=== PATIENT | male | born 1950 | race African-American/Black ===

== ENCOUNTER → 2017-02-20 | Outpatient (CLI) | payer MEDICARE, OTHER ==
[~2017-02-20] MED LIST: ALBUTEROL SULF 2.5 MG/0.5ML(0.5%) NEB SOLN ONE; HYDR25TA4 PO; IPRA0.064; LIS20T PO; METF-370 PO; OMEP20CA74 OR
== END | disposition home or self-care (01) ==
LOC: RT 08:47
PROVIDERS: ATTEND Internal Medicine
DX: J44.9 Chronic obstructive pulmonary disease, unspecified (principal)
CPT/HCPCS: 94060; 94640

== ENCOUNTER → 2019-11-21 | Outpatient (CLI) | payer OTHER, MEDICAID ==
[~2019-11-21] MED LIST changes: -ALBUTEROL SULF 2.5 MG/0.5ML(0.5%) NEB SOLN ONE
== END | disposition home or self-care (01) ==
LOC: RT 11:15
DX: J44.9 Chronic obstructive pulmonary disease, unspecified (principal)
CPT/HCPCS: 36600; 82805

== ENCOUNTER 2021-03-27 12:04 | Inpatient (IN) | payer OTHER, MEDICAID ==
[~2021-03-27] VITALS: Ht 175.3 cm; Wt 118.4 kg
[~2021-03-27 12:04] MED LIST changes: +ALBU1AER4 IN; +AML5T PO; +EMPA1TAB3 PO; +FURO20TA3 PO; +GABA600T PO; +INSU100I4 SC; +LEVEMIR SC; +ROFL1TAB2 PO; +TAM04C PO; +UMEC1AER IN
[2021-03-27 12:35] LABS: Basophils # (auto) 0.1 10 ^3/uL (0-0.2); Basophils % (auto) 0.9 % (0.0-2.0); Eosinophils # (auto) 0.2 10 ^3/uL (0-0.8); Eosinophils % (auto) 1.5 % (0.0-7.0); Hematocrit 41.5 % (41.0-53.0); Hemoglobin 13.5 g/dL (13.5-17.5); Lymphocytes # (auto) 1.8 10 ^3/uL (0.4-5.4); Lymphocytes % (auto) 16.9 % (10.0-50.0); Mean Corpuscular Hgb Conc. 32.6 g/dL (32.0-36.0); Mean Corpuscular Volume 85.9 fL (80.0-100.0); Monocytes # (auto) 0.6 10 ^3/uL (0-1.3); Monocytes % (auto) 5.8 % (0.0-12.0); Neutrophils # (auto) 7.9 10 ^3/uL (1.6-8.6); Neutrophils % (auto) 74.9 % (37.0-80.0); Red Blood Cells 4.83 10^6/uL (4.5-5.90); Red Cell Distribution Width 15.5 % (11.8-14.3); White Blood Cell 10.5 10^3/uL (4.4-10.8)
[2021-03-27] MEDS ORDERED: ASPirin-EC 81 mg tab PO ONE (12:45)
[2021-03-27 12:57] LABS: Albumin 3.3 g/dL (3.4-5.0); Anion Gap 7 (5-15); Blood Urea Nitrogen 19 mg/dL (7-18); Calcium 9.5 mg/dL (8.5-10.1); Carbon Dioxide 25 mmol/L (21-32); Chloride 109 mmol/L (98-107); Glucose 183 mg/dL (74-106); Sodium 141 mmol/L (136-145)
[2021-03-27 13:03] LABS: Alanine Aminotransferase 35 U/L (16-61); Alkaline Phosphatase 208 U/L (45-117); Aspartate Aminotransferase 24 U/L (15-37); BUN/Creatinine Ratio 9.7; Bilirubin, Total 0.2 mg/dL (0.2-1.0); GFR African American 44 mL/min; GFR Non-African American 36 mL/min; Total Protein 8.4 g/dL (6.4-8.2)
[2021-03-27] MEDS ORDERED: cefTRIAXone 1GM/50ML D5W 50 ML IV ONE (15:00)
[2021-03-27] MEDS ORDERED: MORPHINE SULF INJ 2 MG/ML SYRINGE 1ML IV ONE (15:15)
[2021-03-27] MEDS ORDERED: ONDANSETRON HCL 4 MG/2 ML VIAL IV ONE (15:15)
[2021-03-27] MEDS ORDERED: MORPHINE SULF INJ 2 MG/ML SYRINGE 1ML IV PRN (16:15)
[2021-03-27] MEDS ORDERED: NITROGLYCERIN 0.4 MG SL TAB SL PRN (16:15)
[2021-03-27 18:38] VITALS: BP 139/79
[2021-03-27] MEDS ORDERED: DEXTROSE (50%) 50ML SYRG IV PRN ×2 (18:45)
[2021-03-27 22:00] VITALS: BP 113/55
[2021-03-27] MEDS ORDERED: ACCU-CHEK COMFORT CURVE STRIP VI SCH (22:00)
[2021-03-27] MEDS ORDERED: InsuLIN REG 1unit/0.01ml Soln (100units/ml) SC SCH (22:00)
[2021-03-27] MEDS ORDERED: GABAPENTIN 300 MG CAP PO ONE (23:15)
[2021-03-27] MEDS: ACCU-CHEK COMFORT CURVE STRIP VI SCH (23:17)
[2021-03-27] MEDS: methylPREDNISolone SOD SUCC 40 MG/ML VL IV SCH (23:17)
[2021-03-27] MEDS: OXYCODONE W/ ACETAMINOPHEN 5/325MG TABLET PO PRN (23:22)
[2021-03-27] MEDS: InsuLIN REG 1unit/0.01ml Soln (100units/ml) SC SCH (23:27)
[2021-03-28 05:00] VITALS: BP 118/49
[2021-03-28] MEDS: GABAPENTIN 300 MG CAP PO SCH ×2 (06:05→14:49)
[2021-03-28] MEDS: OXYCODONE W/ ACETAMINOPHEN 5/325MG TABLET PO PRN (06:47)
[2021-03-28] MEDS: ACCU-CHEK COMFORT CURVE STRIP VI SCH ×2 (06:47→11:27)
[2021-03-28] MEDS: InsuLIN REG 1unit/0.01ml Soln (100units/ml) SC SCH ×2 (06:50→12:03)
[2021-03-28 09:29] VITALS: BP 138/73
[2021-03-28] MEDS ORDERED: ENOXAPARIN SOD 40 MG/0.4 ML SYRINGE SC SCH (10:00)
[2021-03-28] MEDS ORDERED: ASPirin-EC 81 mg tab PO SCH (10:00)
[2021-03-28] MEDS ORDERED: AZITHROMYCIN 500MG/ 250ML 250 ML IV SCH (10:00)
[2021-03-28] MEDS: methylPREDNISolone SOD SUCC 40 MG/ML VL IV SCH (10:19)
[2021-03-28] MEDS ORDERED: GUAI600T23 PO (11:34)
[2021-03-28] MEDS ORDERED: PRED20TA2 PO (11:34)
[2021-03-28] MEDS ORDERED: AZIT500T66 PO (11:35)
[2021-03-28] MEDS ORDERED: IPRA0.00 IN (11:35)
[2021-03-28 12:47] VITALS: BP 136/64
[2021-03-28 14:50] VITALS: BP 138/73
== END 2021-03-28 15:45 | disposition hospice, home (50) | DRG 191 ==
LOC: EDBD 12:04 → ER 12:04 → TELE 16:03 → TELE-CENTR 18:22
PROVIDERS: ADMIT Internal Medicine; ATTEND Internal Medicine
DX: J44.1 Chronic obstructive pulmonary disease with (acute) exacerbation (principal); I25.110 Atherosclerotic heart disease of native coronary artery with unstable angina pectoris; Z20.822 Contact with and (suspected) exposure to COVID-19; R07.89 Other chest pain; Z51.5 Encounter for palliative care; E11.40 Type 2 diabetes mellitus with diabetic neuropathy, unspecified; I11.0 Hypertensive heart disease with heart failure; I50.9 Heart failure, unspecified; K74.60 Unspecified cirrhosis of liver; N40.0 Benign prostatic hyperplasia without lower urinary tract symptoms; Z82.49 Family history of ischemic heart disease and other diseases of the circulatory system; Z83.3 Family history of diabetes mellitus; Z86.16 Personal history of COVID-19; Z87.891 Personal history of nicotine dependence; Z99.81 Dependence on supplemental oxygen
CPT/HCPCS: 36415; 71045; 74176; 80053; 82962; 83605; 83880; 84484; 85025; 87040; 87426; 93306; 96365; 96375; G0378; J0696; J1815; J2405

== ENCOUNTER 2022-11-15 21:38 | Inpatient (IN) | payer OTHER, MEDICAID ==
[~2022-11-15] VITALS: Ht 172.7 cm; Wt 120.8 kg
[~2022-11-15 21:38] MED LIST changes: +AZIT500T66 PO; +GUAI600T23 PO; -HYDR25TA4 PO; +IPRA0.00 IN; +PRED20TA2 PO
[2022-11-15 22:33] LABS: Eosinophils # (auto) 0.3 10 ^3/uL (0-0.8); Eosinophils % (auto) 3.2 % (0.0-7.0); Lymphocytes # (auto) 1.3 10 ^3/uL (0.4-5.4); Monocytes # (auto) 0.8 10 ^3/uL (0-1.3); Neutrophils # (auto) 6.3 10 ^3/uL (1.6-8.6); White Blood Cell 8.7 10^3/uL (4.4-10.8)
[2022-11-15 22:35] LABS: Basophils # (auto) 0.1 10 ^3/uL (0-0.2); Basophils % (auto) 0.6 % (0.0-2.0); Hematocrit 30.4 % (41.0-53.0); Hemoglobin 9.4 g/dL (13.5-17.5); Lymphocytes % (auto) 15.3 % (10.0-50.0); Mean Corpuscular Hemoglobin 24.1 pg (28.0-32.0); Mean Corpuscular Volume 77.8 fL (80.0-100.0); Monocytes % (auto) 8.6 % (0.0-12.0); Neutrophils % (auto) 72.3 % (37.0-80.0); Red Blood Cells 3.91 10^6/uL (4.5-5.90); Red Cell Distribution Width 17.8 % (11.8-14.3)
[2022-11-15 22:50] LABS: INR 0.97 (0.9-1.15); Partial Thromboplastin Time 29.6 sec (24.6-33.4)
[2022-11-15 22:54] LABS: Albumin 2.8 g/dL (3.4-5.0); Magnesium 2.6 mg/dL (1.6-2.6); Potassium 4.2 mmol/L (3.5-5.1)
[2022-11-15 22:56] LABS: Bilirubin, Total 0.2 mg/dL (0.2-1.0); Total Protein 8.5 g/dL (6.4-8.2)
[2022-11-15 23:03] LABS: BUN/Creatinine Ratio 20.5
[2022-11-15] MEDS ORDERED: SODIUM CHLORIDE 0.9% 1,000 ML IV ONE (23:15)
[2022-11-15] MEDS ORDERED: InsuLIN REG 1unit/0.01ml Soln (100units/ml) IV ONE (23:15)
[2022-11-16] MEDS ORDERED: InsuLIN REG 1unit/0.01ml Soln (100units/ml) IV ONE ×2 (00:35→03:15)
[2022-11-16] MEDS ORDERED: InsuLIN REG 1unit/0.01ml Soln (100units/ml) ONE (00:37)
[2022-11-16 01:38] LABS: Urine Bacteria FEW /hpf (None Seen); Urine Blood Negative /uL (Negative); Urine Specific Gravity 1.007 (1.001-1.035); Urine WBC 1 /hpf (0 - 3)
[2022-11-16 04:10] LABS: Alcohol, Urine < 3.0 mg/dL (0-10); Amphetamine Screen, Urine NEGATIVE (NEGATIVE); Barbiturate Scree,Urine NEGATIVE (NEGATIVE); Benzodiazephine Screen, Urine NEGATIVE (NEGATIVE); Cannabinoid Screen, Urine NEGATIVE (NEGATIVE); Cocaine Screen, Urine NEGATIVE (NEGATIVE); Opiate Scree,Urine NEGATIVE (NEGATIVE); Phencyclidine Screen, Urine NEGATIVE (NEGATIVE)
[2022-11-16 07:10] LABS: Basophils # (auto) 0.1 10 ^3/uL (0-0.2); Basophils % (auto) 1.1 % (0.0-2.0); Eosinophils # (auto) 0.3 10 ^3/uL (0-0.8); Eosinophils % (auto) 3.6 % (0.0-7.0); Hematocrit 28.1 % (41.0-53.0); Hemoglobin 8.9 g/dL (13.5-17.5); Lymphocytes # (auto) 1.1 10 ^3/uL (0.4-5.4); Lymphocytes % (auto) 14.5 % (10.0-50.0); Mean Corpuscular Hemoglobin 24.2 pg (28.0-32.0); Mean Corpuscular Hgb Conc. 31.7 g/dL (32.0-36.0); Mean Corpuscular Volume 76.5 fL (80.0-100.0); Monocytes # (auto) 0.7 10 ^3/uL (0-1.3); Monocytes % (auto) 8.4 % (0.0-12.0); Neutrophils # (auto) 5.7 10 ^3/uL (1.6-8.6); Neutrophils % (auto) 72.4 % (37.0-80.0); Nucleated Red Blood Cells % 0.1 %; Red Blood Cells 3.68 10^6/uL (4.5-5.90); White Blood Cell 7.9 10^3/uL (4.4-10.8)
[2022-11-16 07:25] LABS: Potassium 4.1 mmol/L (3.5-5.1)
[2022-11-16 07:31] LABS: Albumin 2.6 g/dL (3.4-5.0); BUN/Creatinine Ratio 21.9; Bilirubin, Total 0.2 mg/dL (0.2-1.0); Calcium 8.8 mg/dL (8.5-10.1); Total Protein 7.9 g/dL (6.4-8.2)
[2022-11-16] MEDS ORDERED: ACETAMINOPHEN 325 MG TAB PO PRN (13:00)
[2022-11-16] MEDS ORDERED: DEXTROSE (50%) 50ML SYRG IV PRN (13:00)
[2022-11-16] MEDS ORDERED: ONDANSETRON HCL 4 MG/2 ML VIAL IV PRN (13:00)
[2022-11-16] MEDS ORDERED: HYDROcodone-ACET 5/325MG TAB PO PRN (13:00)
[2022-11-16] MEDS ORDERED: MORPHINE SULFATE INJ 2 MG/ml SYRG IV PRN (13:00)
[2022-11-16] MEDS ORDERED: NITROGLYCERIN 0.4 MG SL TAB SL PRN (13:00)
[2022-11-16] MEDS ORDERED: MET25T PO (13:13)
[2022-11-16] MEDS: SODIUM CHLOR 0.9% PF (SALINE LOCK) 10ML VIAL/SYR IV SCH ×2 (13:41→22:32)
[2022-11-16] MEDS ORDERED: GABAPENTIN 300 MG CAP PO SCH (14:00)
[2022-11-16] MEDS: ACCU-CHEK COMFORT CURVE STRIP VI SCH ×2 (17:59→22:32)
[2022-11-16] MEDS: InsuLIN REG 1unit/0.01ml Soln (100units/ml) SC SCH ×2 (18:03→22:18)
[2022-11-16] MEDS ORDERED: INSULIN LANTUS (GLARGINE) 1 /0.01ml (100units/ml) SC ONE (18:15)
[2022-11-16] MEDS ORDERED: IPRATROPIUM BROM 0.5 MG/2.5ML INH SOL NEB PRN (18:45)
[2022-11-16] MEDS ORDERED: ALBUTEROL SULF 2.5 MG/0.5ML(0.5%) NEB SOLN NEB PRN (18:45)
[2022-11-16 19:16] VITALS: BP 188/82
[2022-11-16 19:30] VITALS: BP 186/90
[2022-11-16] MEDS ORDERED: hydrALAZINE HCL 20 MG/ML VL IV PRN (20:30)
[2022-11-16 22:00] VITALS: BP_SYST 131; BP_SYST 172; BP_DIAS 45; BP_DIAS 71
[2022-11-16] MEDS: GABAPENTIN 300 MG CAP PO SCH (22:21)
[2022-11-16] MEDS: OXYCODONE W/ ACETAMINOPHEN 5/325MG TABLET PO PRN (22:21)
[2022-11-16] MEDS: FUROSEMIDE 20 MG TAB PO SCH (22:21)
[2022-11-17] VITALS (7 sets, daily range): BP systolic 111–172; BP diastolic 51–71
[2022-11-17] MEDS: InsuLIN REG 1unit/0.01ml Soln (100units/ml) SC SCH ×4 (06:28→22:06)
[2022-11-17] MEDS: GABAPENTIN 300 MG CAP PO SCH ×3 (06:29→22:02)
[2022-11-17] MEDS: OXYCODONE W/ ACETAMINOPHEN 5/325MG TABLET PO PRN ×3 (06:29→22:07)
[2022-11-17] MEDS: FUROSEMIDE 20 MG TAB PO SCH (06:33)
[2022-11-17] MEDS: SODIUM CHLOR 0.9% PF (SALINE LOCK) 10ML VIAL/SYR IV SCH ×3 (06:33→22:07)
[2022-11-17] MEDS: ACCU-CHEK COMFORT CURVE STRIP VI SCH ×4 (06:34→22:06)
[2022-11-17 06:36] LABS: Basophils % (auto) 0.6 % (0.0-2.0); Eosinophils # (auto) 0.3 10 ^3/uL (0-0.8); Lymphocytes # (auto) 1.2 10 ^3/uL (0.4-5.4); Mean Corpuscular Hgb Conc. 32.3 g/dL (32.0-36.0); Monocytes # (auto) 0.6 10 ^3/uL (0-1.3); Neutrophils # (auto) 6.4 10 ^3/uL (1.6-8.6); Nucleated Red Blood Cells % 0.1 %; White Blood Cell 8.5 10^3/uL (4.4-10.8)
[2022-11-17 06:38] LABS: Basophils # (auto) 0.1 10 ^3/uL (0-0.2); Eosinophils % (auto) 3.2 % (0.0-7.0); Hematocrit 31.4 % (41.0-53.0); Hemoglobin 10.1 g/dL (13.5-17.5); Lymphocytes % (auto) 14.3 % (10.0-50.0); Mean Corpuscular Volume 77.5 fL (80.0-100.0); Monocytes % (auto) 6.9 % (0.0-12.0); Red Blood Cells 4.05 10^6/uL (4.5-5.90); Red Cell Distribution Width 18.1 % (11.8-14.3)
[2022-11-17 07:00] LABS: Albumin 2.9 g/dL (3.4-5.0); BUN/Creatinine Ratio 19.7; Calcium 9.3 mg/dL (8.5-10.1)
[2022-11-17 07:04] LABS: Bilirubin, Total 0.3 mg/dL (0.2-1.0); Total Protein 8.7 g/dL (6.4-8.2)
[2022-11-17] MEDS ORDERED: INSULIN LANTUS (GLARGINE) 1 /0.01ml (100units/ml) SC SCH (10:00)
[2022-11-17] MEDS: ROFLUMILAST PO SCH (10:00)
[2022-11-17] MEDS: DOCUSATE SOD 100 MG CAP PO PRN (10:10)
[2022-11-17] MEDS: TAMSULOSIN HYDROCHLORIDE 0.4 MG CAP PO SCH (10:10)
[2022-11-17] MEDS: PANTOPRAZOLE 40 MG/10 ML VIAL INJ IV SCH (10:10)
[2022-11-17] MEDS: METOPROLOL TARTRATE 25 MG TAB PO SCH (10:11)
[2022-11-17] MEDS ORDERED: LIDOCAINE 2%HCL (LOCAL ANESTH.) INJ 10ml MDV ONE (14:11)
[2022-11-17] MEDS ORDERED: SODIUM CHLORIDE 0.9% 1,000 ML IV ONE (16:45)
[2022-11-17] MEDS: INSULIN LANTUS (GLARGINE) 1 /0.01ml (100units/ml) SC SCH (22:05)
[2022-11-18] VITALS (7 sets, daily range): BP systolic 98–154; BP diastolic 57–81
[2022-11-18] MEDS: InsuLIN REG 1unit/0.01ml Soln (100units/ml) SC SCH ×4 (06:28→22:17)
[2022-11-18] MEDS: OXYCODONE W/ ACETAMINOPHEN 5/325MG TABLET PO PRN ×2 (06:29→22:12)
[2022-11-18] MEDS: EMPAGLIFLOZIN 10 MG TAB PO SCH (06:29)
[2022-11-18] MEDS: GABAPENTIN 300 MG CAP PO SCH ×3 (06:29→22:12)
[2022-11-18] MEDS: SODIUM CHLOR 0.9% PF (SALINE LOCK) 10ML VIAL/SYR IV SCH ×3 (06:30→22:18)
[2022-11-18] MEDS: ACCU-CHEK COMFORT CURVE STRIP VI SCH ×4 (06:30→22:13)
[2022-11-18 07:25] LABS: Basophils # (auto) 0 10 ^3/uL (0-0.2); Basophils % (auto) 0.5 % (0.0-2.0); Eosinophils # (auto) 0.3 10 ^3/uL (0-0.8); Eosinophils % (auto) 3.1 % (0.0-7.0); Lymphocytes # (auto) 1.5 10 ^3/uL (0.4-5.4); Monocytes # (auto) 0.6 10 ^3/uL (0-1.3); Nucleated Red Blood Cells % 0.1 %
[2022-11-18 07:28] LABS: Hematocrit 32.3 % (41.0-53.0); Hemoglobin 10.4 g/dL (13.5-17.5); Lymphocytes % (auto) 16.5 % (10.0-50.0); Mean Corpuscular Hemoglobin 24.4 pg (28.0-32.0); Mean Corpuscular Hgb Conc. 32.2 g/dL (32.0-36.0); Mean Corpuscular Volume 75.9 fL (80.0-100.0); Monocytes % (auto) 6.4 % (0.0-12.0); Neutrophils # (auto) 6.4 10 ^3/uL (1.6-8.6); Neutrophils % (auto) 73.5 % (37.0-80.0); Red Blood Cells 4.25 10^6/uL (4.5-5.90); Red Cell Distribution Width 18.3 % (11.8-14.3); White Blood Cell 8.8 10^3/uL (4.4-10.8)
[2022-11-18 08:21] LABS: BUN/Creatinine Ratio 17.9; Calcium 9.3 mg/dL (8.5-10.1); Potassium 4.1 mmol/L (3.5-5.1)
[2022-11-18] MEDS: PANTOPRAZOLE 40 MG/10 ML VIAL INJ IV SCH (09:04)
[2022-11-18] MEDS: METOPROLOL TARTRATE 25 MG TAB PO SCH (09:05)
[2022-11-18] MEDS: TAMSULOSIN HYDROCHLORIDE 0.4 MG CAP PO SCH (09:05)
[2022-11-18] MEDS: INSULIN LANTUS (GLARGINE) 1 /0.01ml (100units/ml) SC SCH ×2 (09:05→22:16)
[2022-11-18] MEDS ORDERED: amLODIPine BESYLATE 5 MG TAB PO SCH (10:00)
[2022-11-18] MEDS: ROFLUMILAST PO SCH (10:00)
[2022-11-18] MEDS: DOCUSATE SOD 100 MG CAP PO PRN (22:12)
[2022-11-19 05:00] VITALS: BP 128/65
[2022-11-19 05:34] LABS: BUN/Creatinine Ratio 16.8; Calcium 9.8 mg/dL (8.5-10.1); Potassium 3.9 mmol/L (3.5-5.1)
[2022-11-19] MEDS: SODIUM CHLOR 0.9% PF (SALINE LOCK) 10ML VIAL/SYR IV SCH ×3 (06:00→21:48)
[2022-11-19] MEDS: InsuLIN REG 1unit/0.01ml Soln (100units/ml) SC SCH ×4 (07:03→21:47)
[2022-11-19] MEDS: GABAPENTIN 300 MG CAP PO SCH ×3 (07:04→21:48)
[2022-11-19] MEDS: EMPAGLIFLOZIN 10 MG TAB PO SCH (07:04)
[2022-11-19] MEDS: ACCU-CHEK COMFORT CURVE STRIP VI SCH ×4 (07:05→21:48)
[2022-11-19 08:37] VITALS: BP 117/61
[2022-11-19] MEDS: PANTOPRAZOLE 40 MG TAB PO SCH (09:35)
[2022-11-19] MEDS: METOPROLOL TARTRATE 25 MG TAB PO SCH (09:35)
[2022-11-19] MEDS: TAMSULOSIN HYDROCHLORIDE 0.4 MG CAP PO SCH (09:36)
[2022-11-19] MEDS: amLODIPine BESYLATE 5 MG TAB PO SCH (09:37)
[2022-11-19] MEDS: ROFLUMILAST PO SCH (09:37)
[2022-11-19] MEDS: INSULIN LANTUS (GLARGINE) 1 /0.01ml (100units/ml) SC SCH ×2 (10:24→21:46)
[2022-11-19 13:00] VITALS: BP 129/54
[2022-11-19 17:00] VITALS: BP 149/69
[2022-11-19 22:00] VITALS: BP 101/60
[2022-11-19 23:48] VITALS: BP 101/60
[2022-11-20] MEDS: OXYCODONE W/ ACETAMINOPHEN 5/325MG TABLET PO PRN ×3 (01:03→21:28)
[2022-11-20 05:00] VITALS: BP 105/57
[2022-11-20 06:35] LABS: Basophils # (auto) 0 10 ^3/uL (0-0.2); Basophils % (auto) 0.4 % (0.0-2.0); Eosinophils # (auto) 0.3 10 ^3/uL (0-0.8); Eosinophils % (auto) 3.2 % (0.0-7.0); Hematocrit 31.5 % (41.0-53.0); Hemoglobin 10.1 g/dL (13.5-17.5); Lymphocytes # (auto) 2.2 10 ^3/uL (0.4-5.4); Lymphocytes % (auto) 20.2 % (10.0-50.0); Mean Corpuscular Hemoglobin 24.6 pg (28.0-32.0); Mean Corpuscular Hgb Conc. 32.1 g/dL (32.0-36.0); Mean Corpuscular Volume 76.8 fL (80.0-100.0); Monocytes # (auto) 0.8 10 ^3/uL (0-1.3); Neutrophils # (auto) 7.6 10 ^3/uL (1.6-8.6); Neutrophils % (auto) 69.2 % (37.0-80.0); Nucleated Red Blood Cells % 0.1 %; Red Blood Cells 4.11 10^6/uL (4.5-5.90); Red Cell Distribution Width 17.6 % (11.8-14.3)
[2022-11-20] MEDS: SODIUM CHLOR 0.9% PF (SALINE LOCK) 10ML VIAL/SYR IV SCH ×3 (06:42→21:29)
[2022-11-20] MEDS: ACCU-CHEK COMFORT CURVE STRIP VI SCH ×4 (06:42→21:31)
[2022-11-20] MEDS: InsuLIN REG 1unit/0.01ml Soln (100units/ml) SC SCH ×4 (06:42→21:30)
[2022-11-20] MEDS: EMPAGLIFLOZIN 10 MG TAB PO SCH (06:42)
[2022-11-20] MEDS: GABAPENTIN 300 MG CAP PO SCH ×3 (06:42→21:20)
[2022-11-20] MEDS: DOCUSATE SOD 100 MG CAP PO PRN (06:48)
[2022-11-20 06:56] LABS: Albumin 2.7 g/dL (3.4-5.0); BUN/Creatinine Ratio 15.2; Calcium 9.1 mg/dL (8.5-10.1)
[2022-11-20 06:58] LABS: Bilirubin, Total 0.3 mg/dL (0.2-1.0); Total Protein 8.4 g/dL (6.4-8.2)
[2022-11-20 08:43] VITALS: BP 135/75
[2022-11-20] MEDS: ROFLUMILAST PO SCH (10:00)
[2022-11-20] MEDS: METOPROLOL TARTRATE 25 MG TAB PO SCH (10:12)
[2022-11-20] MEDS: TAMSULOSIN HYDROCHLORIDE 0.4 MG CAP PO SCH (10:12)
[2022-11-20] MEDS: PANTOPRAZOLE 40 MG TAB PO SCH (10:13)
[2022-11-20] MEDS: amLODIPine BESYLATE 5 MG TAB PO SCH (10:13)
[2022-11-20] MEDS: INSULIN LANTUS (GLARGINE) 1 /0.01ml (100units/ml) SC SCH ×2 (10:18→21:31)
[2022-11-20 13:00] VITALS: BP 100/73
[2022-11-20] MEDS ORDERED: SODIUM CHLORIDE 0.9% 500 ML IV ONE (16:15)
[2022-11-20 17:00] VITALS: BP 104/61
[2022-11-20 22:00] VITALS: BP 137/68
[2022-11-21] MEDS ORDERED: CYCL-839 PO (01:14)
[2022-11-21] MEDS ORDERED: NORT25CA PO (01:14)
[2022-11-21] MEDS ORDERED: LORA-35 PO (01:14)
[2022-11-21] MEDS ORDERED: GLIP10TA9 PO (01:14)
[2022-11-21] MEDS ORDERED: SEMA7TAB PO (01:14)
[2022-11-21] MEDS ORDERED: SERT50TA19 PO (01:14)
[2022-11-21] MEDS ORDERED: DOXA1TAB28 PO (01:14)
[2022-11-21] MEDS ORDERED: SENN1TAB14 PO (01:14)
[2022-11-21] MEDS ORDERED: OXY5T GT (01:14)
[2022-11-21] MEDS ORDERED: PANT40TA2 PO (01:14)
[2022-11-21 05:00] VITALS: BP 104/57
[2022-11-21] MEDS: SODIUM CHLOR 0.9% PF (SALINE LOCK) 10ML VIAL/SYR IV SCH ×3 (06:24→21:56)
[2022-11-21] MEDS: GABAPENTIN 300 MG CAP PO SCH ×3 (06:24→21:56)
[2022-11-21] MEDS: InsuLIN REG 1unit/0.01ml Soln (100units/ml) SC SCH ×4 (06:25→22:00)
[2022-11-21] MEDS: ACCU-CHEK COMFORT CURVE STRIP VI SCH ×4 (06:25→21:57)
[2022-11-21 09:00] VITALS: BP 119/63
[2022-11-21] MEDS: ROFLUMILAST PO SCH (10:00)
[2022-11-21] MEDS: TAMSULOSIN HYDROCHLORIDE 0.4 MG CAP PO SCH (11:15)
[2022-11-21] MEDS: OXYCODONE W/ ACETAMINOPHEN 5/325MG TABLET PO PRN ×2 (11:16→20:21)
[2022-11-21] MEDS: PANTOPRAZOLE 40 MG TAB PO SCH (11:16)
[2022-11-21] MEDS: amLODIPine BESYLATE 5 MG TAB PO SCH (11:17)
[2022-11-21] MEDS: METOPROLOL TARTRATE 25 MG TAB PO SCH (11:17)
[2022-11-21] MEDS: INSULIN LANTUS (GLARGINE) 1 /0.01ml (100units/ml) SC SCH ×2 (11:24→21:59)
[2022-11-21 13:00] VITALS: BP_SYST 111; BP_SYST 142; BP_DIAS 54; BP_DIAS 81
[2022-11-21 17:28] VITALS: BP_SYST 133; BP_SYST 134; BP_DIAS 69; BP_DIAS 75
[2022-11-21 20:05] VITALS: BP 142/69
[2022-11-21 21:54] VITALS: BP 117/62
[2022-11-22 05:00] VITALS: BP 113/52
[2022-11-22] MEDS: OXYCODONE W/ ACETAMINOPHEN 5/325MG TABLET PO PRN ×3 (05:00→18:25)
[2022-11-22] MEDS: SODIUM CHLOR 0.9% PF (SALINE LOCK) 10ML VIAL/SYR IV SCH ×3 (05:00→21:18)
[2022-11-22] MEDS: ACCU-CHEK COMFORT CURVE STRIP VI SCH ×4 (06:20→21:18)
[2022-11-22] MEDS: GABAPENTIN 300 MG CAP PO SCH ×3 (06:20→21:00)
[2022-11-22] MEDS: InsuLIN REG 1unit/0.01ml Soln (100units/ml) SC SCH ×4 (06:21→21:21)
[2022-11-22 07:24] LABS: Protein, Urine 6.9 mg/dL (0.0-11.9)
[2022-11-22 09:00] VITALS: BP 137/68
[2022-11-22] MEDS: ROFLUMILAST PO SCH (10:00)
[2022-11-22] MEDS: TAMSULOSIN HYDROCHLORIDE 0.4 MG CAP PO SCH (10:16)
[2022-11-22] MEDS: PANTOPRAZOLE 40 MG TAB PO SCH (10:16)
[2022-11-22] MEDS: amLODIPine BESYLATE 5 MG TAB PO SCH (10:16)
[2022-11-22] MEDS: METOPROLOL TARTRATE 25 MG TAB PO SCH (10:17)
[2022-11-22] MEDS: INSULIN LANTUS (GLARGINE) 1 /0.01ml (100units/ml) SC SCH ×2 (10:23→21:19)
[2022-11-22] MEDS ORDERED: LEVEMIR SC (12:11)
[2022-11-22 13:00] VITALS: BP 147/61
[2022-11-22 14:13] VITALS: BP 141/67
[2022-11-22 16:00] VITALS: BP 127/63
[2022-11-22] MEDS: DOCUSATE SOD 100 MG CAP PO PRN (21:00)
[2022-11-22 21:55] VITALS: BP 135/48
== END 2022-11-22 21:41 | disposition home or self-care (01) | DRG 180 ==
LOC: EDBD 21:38 → ER 21:40 → TELE 11-16 13:13 → TELE-WESTW 11-16 21:00 → WEST WING 11-16 21:04
PROVIDERS: ADMIT Nurse Practitioner Family; ATTEND Internal Medicine
PROC: 0BBK3ZX Excision of Right Lung, Percutaneous Approach, Diagnostic (ICD-10-PCS; principal; 2022-11-17)
DX: C34.91 Malignant neoplasm of unspecified part of right bronchus or lung (principal); I50.33 Acute on chronic diastolic (congestive) heart failure; N17.0 Acute kidney failure with tubular necrosis; I13.0 Hypertensive heart and chronic kidney disease with heart failure and stage 1 through stage 4 chronic kidney disease, or unspecified chronic kidney disease; J96.10 Chronic respiratory failure, unspecified whether with hypoxia or hypercapnia; J44.1 Chronic obstructive pulmonary disease with (acute) exacerbation; Z68.41 Body mass index [BMI] 40.0-44.9, adult; E11.65 Type 2 diabetes mellitus with hyperglycemia; E66.01 Morbid (severe) obesity due to excess calories; N18.32 Chronic kidney disease, stage 3b; D64.9 Anemia, unspecified; E11.22 Type 2 diabetes mellitus with diabetic chronic kidney disease; N28.89 Other specified disorders of kidney and ureter; I25.10 Atherosclerotic heart disease of native coronary artery without angina pectoris; Z20.822 Contact with and (suspected) exposure to COVID-19; Z82.49 Family history of ischemic heart disease and other diseases of the circulatory system; Z83.3 Family history of diabetes mellitus; Z87.891 Personal history of nicotine dependence
CPT/HCPCS: 10005; 36415; 36600; 70450; 71045; 71250; 74176; 76775; 77012; 80048; 80053; 80307; 81001; 82140; 82306; 82570; 82805; 82962; 83036; 83735; 83880; 83970; 84100; 84156; 84300; 84443; 84484; 85025; 85610; 85730; 87426; 93005; 96361; 96374; 96376; C9113; G0378; J1815; J2001

== ENCOUNTER 2024-01-05 17:05 | Inpatient (IN) | payer OTHER, MEDICAID ==
[~2024-01-05] VITALS: Ht 172.7 cm; Wt 106.0 kg
[~2024-01-05 17:05] MED LIST changes: -AZIT500T66 PO; +CYCL-839 PO; +DOXA1TAB28 PO; +GLIP10TA9 PO; -GUAI600T23 PO; +GUAI600T78 PO; +LORA-35 PO; +MET25T PO; +NORT25CA PO; +OXY5T GT; +PANT40TA2 PO; -PRED20TA2 PO; +SEMA7TAB2 PO; +SENN1TAB14 PO; +SERT-206 PO; -TAM04C PO; +TAMS-35 PO
[2024-01-05 17:30] VITALS: PULSE 168; RESP 18; O2SAT 98
[2024-01-05] MEDS: dilTIAZem 25 MG/5 ML VIAL IV ONE (17:36)
[2024-01-05] MEDS: FUROSEMIDE 40 MG/4 ML VIAL IV ONE (18:07)
[2024-01-05 18:09] LABS: Eosinophils # (auto) 0.3 10 ^3/uL (0-0.8); Hemoglobin 8.6 g/dL (13.5-17.5); Lymphocytes # (auto) 1.5 10 ^3/uL (0.4-5.4); Mean Corpuscular Volume 71.9 fL (80.0-100.0); Monocytes # (auto) 0.7 10 ^3/uL (0-1.3); Nucleated Red Blood Cells % 0.1 %; White Blood Cell 7.5 10^3/uL (4.4-10.8)
[2024-01-05 18:11] LABS: Basophils # (auto) 0 10 ^3/uL (0-0.2); Basophils % (auto) 0.6 % (0.0-2.0); Eosinophils % (auto) 4.3 % (0.0-7.0); Hematocrit 28.5 % (41.0-53.0); Lymphocytes % (auto) 19.5 % (10.0-50.0); Mean Corpuscular Hemoglobin 21.7 pg (28.0-32.0); Mean Corpuscular Hgb Conc. 30.1 g/dL (32.0-36.0); Monocytes % (auto) 9.4 % (0.0-12.0); Neutrophils % (auto) 66.2 % (37.0-80.0); Red Blood Cells 3.96 10^6/uL (4.5-5.90); Red Cell Distribution Width 19.5 % (11.8-14.3)
[2024-01-05 18:14] LABS: Urine Bacteria None Seen /hpf (None Seen)
[2024-01-05 18:21] LABS: Alanine Aminotransferase 30 U/L (7-40); Albumin 3.5 g/dL (3.2-4.8); Alkaline Phosphatase 196 U/L (46-116); Anion Gap 6 (5-15); Aspartate Aminotransferase 26 U/L (13-40); BUN/Creatinine Ratio 14.9 (10.0-20.0); Bilirubin, Total 0.2 mg/dL (0.2-1.0); Blood Urea Nitrogen 23 mg/dL (9-23); Calcium 8.7 mg/dL (8.7-10.4); Carbon Dioxide 26 mmol/L (20-30); Chloride 107 mmol/L (98-107); Glucose 119 mg/dL (74-106); Magnesium 2.1 mg/dL (1.6-2.6); Potassium 4.5 mmol/L (3.5-5.1); Sodium 139 mmol/L (136-145); Total Protein 6.6 g/dL (5.7-8.2)
[2024-01-05 18:38] LABS: Urine Blood Negative /uL (Negative); Urine Clarity Clear (Clear); Urine Color Light-Yellow (Yellow); Urine Protein, UAD Negative (Negative); Urine Specific Gravity 1.004 (1.001-1.035); Urine Urobilinogen Normal (Negative); Urine WBC <1 /hpf (0 - 3)
[2024-01-05 18:48] LABS: INR 0.99 (0.9-1.15); Partial Thromboplastin Time 29.6 SEC (24.5-34.5); Prothrombin Time 10.5 sec (9.3-11.8)
[2024-01-05] MEDS ORDERED: ONDANSETRON HCL 4 MG/2 ML VIAL IV PRN (19:15)
[2024-01-05] MEDS ORDERED: DOCUSATE SOD 100 MG CAP PO PRN (19:15)
[2024-01-05] MEDS ORDERED: DEXTROSE (50%) 50ML SYRG IV PRN (19:15)
[2024-01-05 19:50] LABS: Base Excess -1.1 mmol/L (-2.0-2.0)
[2024-01-05 20:00] VITALS: PULSE 97; RESP 16; O2SAT 96
[2024-01-05 20:08] VITALS: O2SAT 99
[2024-01-05 20:23] VITALS: BP 154/71; PULSE 86; RESP 12; TEMP 97.6; O2SAT 98
[2024-01-05] MEDS: amLODIPine BESYLATE 5 MG TAB PO SCH (21:09)
[2024-01-05 22:21] VITALS: BP 144/79; PULSE 92; TEMP 98.2; O2SAT 96
[2024-01-05] MEDS: GABAPENTIN 100 MG CAP PO SCH (22:24)
[2024-01-05] MEDS: ACCU-CHEK COMFORT CURVE STRIP VI SCH (22:25)
[2024-01-05] MEDS: METOPROLOL TARTRATE 25 MG TAB PO SCH (22:25)
[2024-01-05] MEDS: SODIUM CHLOR 0.9% PF (SALINE LOCK) 10ML VIAL/SYR IV SCH (22:25)
[2024-01-05] MEDS: InsuLIN REG 1unit/0.01ml Soln (100units/ml) SC SCH (22:35)
[2024-01-06] VITALS (15 sets, daily range): BP systolic 105–154; BP diastolic 61–69; PULSE 79–98; RESP 18–20; TEMP 97.6–98.6; O2SAT 97–99
[2024-01-06] MEDS: InsuLIN REG 1unit/0.01ml Soln (100units/ml) SC SCH (06:19)
[2024-01-06] MEDS: TAMSULOSIN HYDROCHLORIDE 0.4 MG CAP PO SCH (09:33)
[2024-01-06] MEDS: FUROSEMIDE 20 MG TAB PO SCH (09:34)
[2024-01-06 12:18] LABS: Chloride 108 mmol/L (98-107); Potassium 4.8 mmol/L (3.5-5.1); Sodium 140 mmol/L (136-145)
[2024-01-06 12:19] LABS: Anion Gap 7 (5-15); Calcium 9.3 mg/dL (8.5-10.1); Carbon Dioxide 25 mmol/L (20-30)
[2024-01-06 12:24] LABS: BUN/Creatinine Ratio 12.7 (10.0-20.0); Blood Urea Nitrogen 20 mg/dL (9-23); Glucose 106 mg/dL (74-106); Triglycerides 132 mg/dL (< 150)
[2024-01-06 12:25] LABS: LDL Cholesterol 93 mg/dL (< 100)
[2024-01-06 12:26] LABS: Cholesterol 155 mg/dL (< 200); HDL Cholesterol 40 mg/dL (40-59)
[2024-01-06 14:23] LABS: Eosinophils # (auto) 0.3 10 ^3/uL (0-0.8); Lymphocytes # (auto) 0.9 10 ^3/uL (0.4-5.4); White Blood Cell 9.2 10^3/uL (4.4-10.8)
[2024-01-06 14:25] LABS: Basophils # (auto) 0 10 ^3/uL (0-0.2); Basophils % (auto) 0.5 % (0.0-2.0); Eosinophils % (auto) 3.5 % (0.0-7.0); Hematocrit 30.3 % (41.0-53.0); Hemoglobin 9.2 g/dL (13.5-17.5); Mean Corpuscular Hemoglobin 22.1 pg (28.0-32.0); Mean Corpuscular Hgb Conc. 30.5 g/dL (32.0-36.0); Mean Corpuscular Volume 72.4 fL (80.0-100.0); Monocytes # (auto) 0.5 10 ^3/uL (0-1.3); Monocytes % (auto) 5.9 % (0.0-12.0); Neutrophils # (auto) 7.3 10 ^3/uL (1.6-8.6); Neutrophils % (auto) 80.1 % (37.0-80.0); Red Blood Cells 4.18 10^6/uL (4.5-5.90); Red Cell Distribution Width 19.4 % (11.8-14.3)
[2024-01-06 14:48] LABS: Amphetamine Screen, Urine Neg (NEGATIVE); Barbiturate Scree,Urine Neg (NEGATIVE); Benzodiazephine Screen, Urine Neg (NEGATIVE); Cannabinoid Screen, Urine Neg (NEGATIVE); Cocaine Screen, Urine Neg (NEGATIVE); Opiate Scree,Urine Neg (NEGATIVE); Phencyclidine Screen, Urine Neg (NEGATIVE)
[2024-01-06] MEDS: HYDROcodone-ACET 5/325MG TAB PO PRN (18:19)
[2024-01-06] MEDS: IPRATROPIUM BROM 0.5 MG/2.5ML INH SOL NEB PRN (22:37)
[2024-01-06] MEDS: ALBUTEROL SULF 2.5 MG/0.5ML(0.5%) NEB SOLN NEB PRN (22:37)
[2024-01-07] VITALS (11 sets, daily range): BP systolic 122–159; BP diastolic 56–98; PULSE 77–89; RESP 18–20; TEMP 97.8–98.6; O2SAT 93–100
[2024-01-07] MEDS: dilTIAZem 25 MG/5 ML VIAL IV ONE (00:17)
[2024-01-07 15:46] LABS: % Iron Saturation 9.4 % (20-55)
[2024-01-07] MEDS: cefTRIAXone 1GM/50ML D5W 50 ML IV ONE (16:11)
[2024-01-07] MEDS: AZITHROMYCIN 500MG/ 250ML 250 ML IV ONE (17:31)
[2024-01-08] VITALS (11 sets, daily range): BP systolic 121–148; BP diastolic 56–83; PULSE 77–99; RESP 18–21; TEMP 97.6–98.4; O2SAT 96–100
[2024-01-08] MEDS: cefTRIAXone 1GM/50ML D5W 50 ML IV SCH (09:52)
[2024-01-08] MEDS: MAGNESIUM OXIDE 400 MG TAB PO SCH (09:58)
[2024-01-08] MEDS: AZITHROMYCIN 500MG/ 250ML 250 ML IV SCH (11:12)
[2024-01-09] VITALS (10 sets, daily range): BP systolic 114–169; BP diastolic 62–114; PULSE 79–100; RESP 18–22; TEMP 96.8–98.5; O2SAT 96–100
[2024-01-09] MEDS: dilTIAZem 25 MG/5 ML VIAL IV ONE (06:51)
[2024-01-09 08:06] LABS: PSA Free <0.02 ng/mL; Prostate Specific Antigen <0.1 ng/mL (0.0-4.0)
[2024-01-09] MEDS: ACETAMINOPHEN 325 MG TAB PO PRN (09:02)
[2024-01-09] MEDS ORDERED: SITA100T7 PO (14:58)
[2024-01-10] VITALS (13 sets, daily range): BP systolic 134–159; BP diastolic 65–88; PULSE 76–102; RESP 18–20; TEMP 97.4–98.4; O2SAT 95–99
[2024-01-11 01:00] VITALS: BP 152/71; PULSE 78; RESP 18; TEMP 98.1; O2SAT 97
[2024-01-11 05:00] VITALS: BP_SYST 103; BP_SYST 151; BP_DIAS 67; BP_DIAS 69; PULSE 62; PULSE 84; RESP 20; TEMP 97.5; TEMP 97.9; O2SAT 95; O2SAT 99
[2024-01-11 08:00] VITALS: PULSE 97; RESP 20; O2SAT 96
[2024-01-11 09:00] VITALS: BP 149/76; PULSE 96; RESP 18; TEMP 97.8; O2SAT 98
[2024-01-11 10:00] VITALS: O2SAT 95
[2024-01-11] MEDS ORDERED: AZIT500T66 PO (10:22)
[2024-01-11] MEDS ORDERED: METO25TA5 PO (10:22)
[2024-01-11 11:52] VITALS: BP 149/76; PULSE 96
== END 2024-01-11 16:50 | disposition hospice, home (50) | DRG 308 ==
LOC: EDBD 17:05 → ER 17:05 → TELE-WESTW 19:22 → TELE 19:22 → TELE-WESTW 22:00
PROVIDERS: ADMIT Family Medicine; ATTEND Family Medicine
DX: I47.10 Supraventricular tachycardia, unspecified (principal); I50.33 Acute on chronic diastolic (congestive) heart failure; J15.9 Unspecified bacterial pneumonia; J15.69 Pneumonia due to other Gram-negative bacteria; C78.00 Secondary malignant neoplasm of unspecified lung; I13.0 Hypertensive heart and chronic kidney disease with heart failure and stage 1 through stage 4 chronic kidney disease, or unspecified chronic kidney disease; J44.1 Chronic obstructive pulmonary disease with (acute) exacerbation; C79.51 Secondary malignant neoplasm of bone; N17.9 Acute kidney failure, unspecified; J44.0 Chronic obstructive pulmonary disease with (acute) lower respiratory infection; N40.0 Benign prostatic hyperplasia without lower urinary tract symptoms; N18.9 Chronic kidney disease, unspecified; E11.22 Type 2 diabetes mellitus with diabetic chronic kidney disease; E11.40 Type 2 diabetes mellitus with diabetic neuropathy, unspecified; E66.01 Morbid (severe) obesity due to excess calories; C61 Malignant neoplasm of prostate; D50.9 Iron deficiency anemia, unspecified; I25.10 Atherosclerotic heart disease of native coronary artery without angina pectoris; M25.512 Pain in left shoulder; Z87.891 Personal history of nicotine dependence; Z82.49 Family history of ischemic heart disease and other diseases of the circulatory system; Z83.3 Family history of diabetes mellitus; Z68.35 Body mass index [BMI] 35.0-35.9, adult
CPT/HCPCS: 36415; 36600; 71045; 71250; 73030; 74176; 78306; 80048; 80053; 80061; 80307; 81001; 82728; 82805; 82962; 83540; 83550; 83615; 83735; 83880; 84154; 84439; 84443; 84484; 85025; 85610; 85730; 87040; 93005; 93306; 94640; 99291; G0378; J1815